=== PATIENT | female | born 1960 | race Caucasian/White ===

== ENCOUNTER → 2018-12-16 17:01 | Outpatient (CLI) | payer BC, SELFPAY ==
--- NOTE | 2018-12-16 17:10 | CT_ITS ---
CT abdomen pelvis wo con INDICATION: Abdominal pain ITS.REASON: STONE PROTOCOL ORDERING PHYSICIAN: Lisa Arriola PATIENT AGE: 58 years COMPARISON: No relevant previous studies for comparison TECHNIQUE: No oral nor IV contrast utilized. Axial images obtained with sagittal and coronal reformats. All CT scans at the facility use one or more dose reduction, viz: automated exposure control, ma/kV adjustment per patient size (including targeted exams where dose is matched to indication, i.e. head), or iterative reconstruction technique. FINDINGS: Lung bases. No acute findings. Linear scarring posterior sulcus on right more so than left. Small calcified granulomas RLL. Mild emphysematous changes.Heart normal size Abdomen/pelvis:. Lack of oral and IV contrast somewhat decreases sensitivity. Liver. 7 mm low density likely cyst just lateral to the gallbladder fossa.. Also a similar lucency area anterior left lobe of liver. Probable small hepatic cysts. Consider ultrasound to support benign cystic character. Noncontrast images of pancreas, spleen, adrenals and kidneys unremarkable. The spleen, pancreas, unremarkable on this noncontrast study. Gallbladder. Likely sludge possible noncalcified stones. No wall thickening nor no biliary ductal dilatation. Period tract. Mild fullness of the right renal pelvis compared to the left but no dina hydronephrosis. Right ureter is slightly more generous down to where it crosses the iliac vessels and I see no calculi nor dina obstructive uropathy on right. Most likely we are viewing phleboliths at the right pelvic basin with no definitive distal ureteral calculus. Pelvis. Moderate wall thickening bladder.. Small to moderate uterus deviates to the rightq. Ovaries appear normal in size with likely a 1.5 cm cyst at the right ovary. No significant free fluid or acute findings. GI tract. Moderate gas and stool throughout the colon. Most prominent stool at right colon. . Appendix Normal. It extends along the right pelvic sidewall towards posterior right pelvis. Small bowel. Proximal small bowel bowel loops upper normal in caliber and wall thickness. Moderate gas with a few scattered air-fluid levels.. The terminal ileum satisfactory.. Osseous. Minor degenerative changes. Slight disc bulge L3/4 mild facet hypertrophy lower L-spine. No retroperitoneal nor mesenteric nor inguinal adenopathy of significance. --------IMPRESSION 1. No discrete acute findings abdomen pelvis . 2. No renal no ureteral calculi . Right renal pelvis is more generous on right but still still within normal limits No definitive hydronephrosis. 3. Liver.: at least 2 small low-density area measuring less than 1 cm each.- Most likely small hepatic cysts. ... Gallbladder.: Sludge. With Possible subtle noncalcified stones.. ...*Consider RUQ ultrasound further evaluate these features
== END ==
PROVIDERS: PCP Nurse Practitioner Family; Visit Provider Nurse Practitioner Family
DX: N39.0 Urinary tract infection, site not specified (principal); R30.0 Dysuria; R31.29 Other microscopic hematuria; M54.6 Pain in thoracic spine
CPT/HCPCS: 74176

== ENCOUNTER → 2018-12-23 07:35 | Outpatient (CLI) | payer BC, SELFPAY ==
--- NOTE | 2018-12-23 07:51 | US_ITS ---
US abdomen limited History:Right upper quadrant pain Ordering Physician:Lisa Arriola Patient Age: 58 years Comparison:None Findings: Pancreas:Unremarkable. No obvious mass or abnormal fluid collection. No ductal dilatation Liver:Unremarkable. No obvious mass or abnormal fluid collection. No ductal dilatation. There is a 8 mm hepatic cyst noted centrally Right Kidney:Unremarkable. Normal size and echogenicity. No hydronephrosis Gallbladder:There is some debris noted within the gallbladder seen on the decubitus images this does not shadow and may represent some sludge or nonshadowing stones. No shadowing stones, gallbladder wall thickening, or biliary ductal dilatation is evident. Common bile duct is normal at 2 mm. Impression: 1. Sludge versus nonshadowing stones in the gallbladder. 2. 8mm hepatic cyst centrally
[2018-12-23 09:17] LABS: Basophils # 0.1 K/mm3 (0-0.2); Basophils % 0.8 % (0.1-2.0); Eosinophils # 0.2 K/mm3 (0.0-0.4); Eosinophils % 2.1 % (0.1-12.0); Hematocrit 42.6 % (37.0-47.0); Hemoglobin 13.9 g/dL (12.2-16.2); Lymphocytes # 2.1 K/mm3 (0.7-4.5); Mean Corpuscular HGB Conc 32.7 g/dL (31.8-35.4); Mean Corpuscular Hemoglobin 29.5 pg (27.0-31.2); Mean Corpuscular Volume 90.3 fl (81-99); Mean Platelet Volume 6.7 fl (7.4-10.4); Monocytes # 0.7 K/mm3 (0.1-1.0); Monocytes % 6.3 % (1.7-9.3); Neutrophils # 7.4 K/mm3 (1.8-7.8); Neutrophils % 70.8 % (37.0-80.0); Platelet Count 391 K/mm3 (142-424); Red Blood Count 4.72 M/mm3 (4.20-5.40); Red Cell Distribution Width 13.6 % (11.5-17.5); White Blood Count 10.5 K/mm3 (4.8-10.8)
[2018-12-23 09:48] LABS: Hemoglobin A1C 5.9 % (0.0-7.0)
[2018-12-23 10:17] LABS: Alanine Aminotransferase 15 U/L (12-78); Albumin Level 3.5 gm/dL (3.4-5.0); Albumin/Globulin Ratio 1.1 (1.1-1.8); Alkaline Phosphatase 114 U/L (46-116); Anion Gap 10.8 mEq/L (5-15); Aspartate Amino Transferase 8 U/L (15-37); Bilirubin,Total 0.3 mg/dL (0.2-1.0); Blood Urea Nitrogen 10 mg/dL (7-18); Calcium 9.3 mg/dL (8.5-10.1); Carbon Dioxide 30 mmol/L (21.0-32.0); Chloride 106 mmol/L (98-107); Chol/HDL Ratio 5.5 (1-3.5); Cholesterol 226 mg/dL (140-200); Creatinine,Serum 0.72 mg/dL (0.55-1.02); Estimated Glomerular Filt Rate 83 ml/min (>60); GFR (African American) 101 ML/MIN (>60); Globulin 3.1 gm/dl (1.3-3.2); Glucose 97 mg/dL (74-106); HDL Cholesterol 41 mg/dL (29-89); LDL Cholesterol 165 mg/dL (0-130); Potassium 4.8 mmoL/L (3.5-5.1); Sodium 142 mmol/L (136-145); Total Protein,Serum 6.6 gm/dL (6.4-8.2); Triglycerides 99 mg/dL (30-200); VLDL Cholesterol 20 mg/dL (0-40)
== END ==
PROVIDERS: Visit Provider Nurse Practitioner Family
DX: R10.11 Right upper quadrant pain (principal); E78.5 Hyperlipidemia, unspecified; R73.9 Hyperglycemia, unspecified; M54.9 Dorsalgia, unspecified
CPT/HCPCS: 36415; 76705; 80053; 80061; 83036; 85025

== ENCOUNTER 2022-11-30 04:28 | Emergency (ER) | payer MEDICAID, SELFPAY ==
[2022-11-30] VITALS (8 sets, daily range): BP systolic 108–131; BP diastolic 74–89; PULSE 74–89; RESP 17–18; TEMP 36.6–37.1; O2SAT 95–97; BMI 26.6
--- NOTE | 2022-11-30 05:13 | CT_ITS ---
PROCEDURE INFORMATION: Exam: CT Head Without Contrast Exam date and time: 11/30/2022 5:38 AM Age: 62 years old Clinical indication: Other: Swelling lip, jaw; Patient HX: Swelling lip & jaw left side; Additional info: Adrian palsy TECHNIQUE: Imaging protocol: Computed tomography of the head without contrast. Radiation optimization: All CT scans at this facility use at least one of these dose optimization techniques: automated exposure control; mA and/or kV adjustment per patient size (includes targeted exams where dose is matched to clinical indication); or iterative reconstruction. Other protocol: This patient has received 0 known CTs and 0 known cardiac nuclear medicine studies in the 12 months prior to the current study. COMPARISON: No relevant prior studies available. FINDINGS: Brain: No acute infarct or hemorrhage. No significant white matter disease. Mild focal prominence of the extra-axial space over the left anterior superior frontal lobe, possibly due to an incidental underlying arachnoid cyst. Cerebral ventricles: No ventriculomegaly. Paranasal sinuses: Visualized sinuses are unremarkable. No fluid levels. Mastoid air cells: Nonspecific fluid within the right mastoid air cells, with trace fluid in the left mastoid air cells. Bones/joints: Unremarkable. No acute fracture. Soft tissues: Unremarkable. IMPRESSION: 1. No acute intracranial abnormality identified. 2. Nonspecific fluid within the right mastoid air cells, with trace fluid in the left mastoid air cells.
[2022-11-30 05:30] LABS: Basophils # 0.2 K/mm3 (0-0.2); Basophils % 1.4 % (0.1-2.0); Eosinophils # 0.2 K/mm3 (0.0-0.4); Eosinophils % 1.9 % (0.1-12.0); Hematocrit 47.6 % (37.0-47.0); Hemoglobin 15.3 g/dL (12.2-16.2); Lymphocytes # 2.8 K/mm3 (0.7-4.5); Lymphocytes % 26.3 % (10-50); Mean Corpuscular HGB Conc 32.1 g/dL (31.8-35.4); Mean Corpuscular Hemoglobin 29.7 pg (27.0-31.2); Mean Corpuscular Volume 92.6 fl (81-99); Mean Platelet Volume 7.5 fl (7.4-10.4); Monocytes # 0.7 K/mm3 (0.1-1.0); Monocytes % 6.6 % (1.7-9.3); Neutrophils # 6.7 K/mm3 (1.8-7.8); Neutrophils % 63.8 % (37.0-80.0); Platelet Count 317 K/mm3 (142-424); Red Blood Count 5.14 M/mm3 (4.20-5.40); White Blood Count 10.5 K/mm3 (4.8-10.8)
[2022-11-30 05:35] LABS: Alanine Aminotransferase 16 U/L (12-78); Albumin Level 4.4 g/dl (3.5-5.0); Albumin/Globulin Ratio 1.6 (1.1-1.8); Alkaline Phosphatase 102 U/L (38-126); Aspartate Amino Transferase 22 U/L (14-36); Bilirubin,Total 0.5 mg/dl (0.2-1.3); Blood Urea Nitrogen 11 mg/dl (7-17); Calcium 8.9 mg/dl (8.4-10.2); Carbon Dioxide 28 mmol/L (22.0-30.0); Chloride 107 mmol/L (98-107); Creatinine Clearance Estimated 69 mL/min (50-200); Estimated Glomerular Filt Rate 85 ml/min (>60); GFR (African American) 103 ML/MIN (>60); Globulin 2.8 g/dL (1.3-3.2); Glucose 102 mg/dl (74-100); Potassium 3.9 mmoL/L (3.5-5.1); Total Protein,Serum 7.2 g/dl (6.3-8.2)
[2022-11-30 05:40] LABS: C-Reactive Protein 4.8 mg/L (0-4)
[2022-11-30 05:54] LABS: Procalcitonin 0.041 ng/mL (0.0-2.0)
[2022-11-30 06:16] LABS: Sodium 143 mmol/L (136-145)
[2022-11-30 06:18] LABS: Anion Gap 11.9 mEq/L (5-15)
--- NOTE | 2022-11-30 06:59 | [facility].EDSKAF ---
Discharge Plan Disposition Patient Disposition: Home, Self-Care Prescriptions Prescriptions: New prednisone 20 mg tablet 20 mg PO BID 7 Days Qty: 14 0RF acyclovir 800 mg tablet 800 mg PO QID Qty: 30 0RF No Action Alavert D-12 Allergy-Sinus 5-120 mg tablet extended release 12 hr 1 tab PO DAILY Label Comments: TAKE 1 TABLET BY MOUTH EVERY 12 HOURS FOR 30 DAYS fluticasone propionate 50 mcg/actuation spray,suspension 1 spray INTRANASAL BID Label Comments: USE 1 SPRAY(S) IN EACH NOSTRIL TWICE DAILY Referrals Follow up/Referrals: Abdoul yVas MD [Primary Care Provider] - See instructions Clinical Impressions Clinical Impression: Ndiaye's palsy Instructions Patient Instructions: DI for [facility] Discharge ED Provider: Jazz (ED)Ankit Skin/Abscess/FB HPI General Chief complaint: Skin/Abscess/Foreign Body Stated complaint: Woke up with left side of face swollen Time Seen by Provider: 11/30/22 05:00 Mode of Arrival: Ambulatory Source of Information: Patient, Spouse and Medical Record Limitations: No Limitations Description of Symptoms (Recalled from ER Triage Doc. by RN): Patient states that she was seen by pcp 2 weeks ago and was treated for swollen ear drums with antibiotics and steroids. This morning patient woke up with swollen lips and a painful jaw on the left side. Denies injury .States she saw a dentist in the fall for a regular cleaning and does not have any cavities she knows of. denies any dental pain. Pt states that she also has had diffuse itching and a knot on the top of her head. Itching for prior 2 days. Noticed the knot this morning. Pt denies any fever or other bodyaches. History of Present Illness HPI narrative: pt awoke with swelling pain lt jaw and swollen lips - no fever or rash and no trauma was treated for ear infection a few weeks ago -no dental pain and area in scalp - no visual loss - Onset (ago): hour(s) Location: face Severity: moderate Associated symptoms: denies other symptoms Treatments prior to arrival: none Related Data Home Medications Medication Instructions Recorded Confirmed fluticasone propionate 50 1 spray intranasal BID allergies 11/30/22 11/30/22 mcg/actuation nasal spray,suspension loratadine 5 mg-pseudoephedrine ER 1 tab PO DAILY allergies 11/30/22 11/30/22 120 mg tablet,extended release,12hr (Alavert D-12 Allergy-Sinus) Previous Rx's Medication Instructions Recorded acyclovir 800 mg tablet 800 mg PO QID #30 tabs 11/30/22 prednisone 20 mg tablet 20 mg PO BID 7 days #14 tabs 11/30/22 Allergies Allergy/AdvReac Type Severity Reaction Status Date / Time gabapentin Allergy Rash Verified 11/30/22 04:59 [facility] Disclaimer: The information contained in this section may have been updated after the patient was seen, as this information can be updated by other users. Social History Smoking Status: Current every day smoker tobacco type: cigarettes packs per day: 1 alcohol intake: never current occupational status: other Travel in the last 8 weeks: None ROS Obtained: Yes All systems reviewed & no additional complaints except as documented Physical Exam General General appearance: alert Head Head exam: normocephalic and other (has small area scalp but no vesicles ) Eye Eye exam: Present PERRL and EOMI ENT ENT exam: Present mucous membranes moist, TM's normal bilaterally and other (swollen lt jaw and lip without tenderness or evid of dental infection) Neck Neck exam: Present full ROM and trachea midline Respiratory Respiratory exam: Present normal lung sounds bilaterally; Absent respiratory distress Cardiovascular Cardiovascular exam: Present regular rate; Absent systolic murmur Abdominal Exam Abdominal exam: Present soft Extremities Exam Extremities exam: Present full ROM Neurological Exam Neurological exam: Present alert, oriented X3 and other (some lt sided early bells palsy change
[2022-11-30 07:00] LABS: Erythrocyte Sedimentation Rate 8 mm/hr (0-30)
== END 2022-11-30 07:40 | disposition home or self-care (01) ==
PROVIDERS: Emergency Provider Emergency Medicine; PCP Internal Medicine Adolescent Medicine
DX: G51.0 Bell's palsy (principal); F17.210 Nicotine dependence, cigarettes, uncomplicated
CPT/HCPCS: 70450; 80053; 84145; 85025; 85651; 86140; 96361; 96374; 99285